=== PATIENT | female | born 1985 | race Caucasian/White ===

== ENCOUNTER 2017-06-14 10:04 | Emergency (ER) | payer MEDICAID ==
[2017-06-14 10:38] VITALS: BP 137/84; PULSE 91; RESP 16; TEMP 98; O2SAT 99
[2017-06-14] MEDS ORDERED: Lidocaine 1% w Epi 1:100,000 Inj ONE (10:42)
[2017-06-14] MEDS ORDERED: Povidone Iodine Topical 10% Sol ONE (10:49)
[2017-06-14] MEDS ORDERED: Lidocaine/Epi 1% 1:100000 20 ML IJ ONE (10:56)
[2017-06-14] MEDS ORDERED: Povidone Iodine 10% OINTMENT TOP ONE (10:59)
--- NOTE | 2017-06-14 11:00 | ED PDOC ---
HPI: Skin/Bite Injury Time Seen by Provider: 06/14/17 10:33 Chief Complaint (Nursing): Lower Extremity Problem/Injury Chief Complaint (Provider): skin abscess History Per: Patient History/Exam Limitations: no limitations Onset/Duration Of Symptoms: Days (x3-4) Current Symptoms Are (Timing): Still Present Additional Complaint(s): 32 years old female with medical history of diabetes, presents to the emergency department for an evaluation of skin abscess on the back of left thigh associated with pain and drainage ongoing for 3-4 days. Patient reported compliance with diabetic medications. PMD: none provided Past Medical History Reviewed: Historical Data, Nursing Documentation, Vital Signs Vital Signs: Last Vital Signs Temp 98.0 F 06/14/17 10:34 Pulse 91 H 06/14/17 10:34 Resp 16 06/14/17 10:34 BP 137/84 06/14/17 10:34 Pulse Ox 99 06/14/17 11:29 - Medical History PMH: Asthma, Diabetes, HTN, Hypercholesterolemia - Surgical History Surgical History: Tonsillectomy - Family History Family History: States: Unknown Family Hx - Social History Current smoker - smoking cessation education provided: No Alcohol: None Drugs: Denies - Immunization History Hx Tetanus Toxoid Vaccination: No Hx Influenza Vaccination: No Hx Pneumococcal Vaccination: No - Home Medications Home Medications: Ambulatory Orders Medication Instructions Recorded GlipiZIDE SR [Glucotrol XL] 5 mg PO DAILY 03/05/14 MetFORMIN [glucoPHAGE] 1,000 mg PO BID 03/05/14 Nitrofurantoin Macrocrystals 100 mg PO BID #13 cap 03/05/14 [Macrobid] Phenazopyridine Hydrochlorid2 1 tab PO TID #15 tab 03/05/14 [Pyridium] Sulfamethoxazole/Trimethoprim 1 tab PO BID #14 tab 11/28/14 [Bactrim DS 800 mg-160 mg] - Allergies Allergies/Adverse Reactions: Allergies Allergy/AdvReac Type Severity Reaction Status Date / Time iodine Allergy RASH Verified 06/14/17 10:27 peach Allergy RASH Verified 06/14/17 10:28 Penicillins Allergy RASH Verified 06/14/17 10:28 shellfish derived Allergy RASH Verified 06/14/17 10:29 Review of Systems ROS Statement: Except As Marked, All Systems Reviewed And Found Negative Musculoskeletal: Positive for: Leg Pain (left thigh abscess with drainage) Physical Exam - Reviewed Nursing Documentation Reviewed: Yes Vital Signs Reviewed: Yes - Physical Exam Appears: Positive for: Well, Non-toxic, No Acute Distress Extremity: Positive for: Normal ROM (left leg), Tenderness (and surrounding erythema to posterior aspect of left thigh), Other (3cm indurated abscess with moderate fluctuance to posterior aspect of left thigh). Negative for: Swelling (or drainage of left thigh abscess) Neurologic/Psych: Positive for: Alert, Oriented - ECG O2 Sat by Pulse Oximetry: 99 (RA) Pulse Ox Interpretation: Normal Medical Decision Making Medical Decision Making: Initial Impression: Skin Abscess Initial Plan: * Lidocaine/Epi 1% 2ml IJ * Betadine 10% oint Time: 1100 --I&D performed. See procedure note. Scribe Attestation: Documented by Marley Pelayo, acting as a scribe for Wilfredo Vizcaino DO . Provider Scribe Attestation: All medical record entries made by the Scribe were at my direction and personally dictated by me. I have reviewed the chart and agree that the record accurately reflects my personal performance of the history, physical exam, medical decision making, and the department course for this patient. I have also personally directed, reviewed, and agree with the discharge instructions and disposition. Disposition - Clinical Impression Clinical Impression: Abscess and cellulitis of gluteal region - Patient ED Disposition Is Patient to be Admitted: No - Disposition Disposition: Routine/Home Disposition Time: 11:20 Condition: STABLE Additional Instructions: Remove packing Friday morning and begin warm daily baths. Return to ER if necessary for worsening symptoms. Forms: [employer] (N[place]ian) Procedures - Time-Out Type of Procedure: incision and drainage Site of Procedure: left posterior thigh Correct Patient (with visual ID + MR# on ID Band): Yes Correct Procedure: Yes Correct Site Marked: Yes X-Ray Marked: No Medication Reconciliation / Bloodwork / Allergies Checked: Yes Physician Name: Carrillo - Incision and Drainage Site: left posterior thigh Blade Size: 11 I & D Procedure: betadine prep, sterile drapes applied Progress: Time: 1100 --Consent obtained from patient verbally. --Patient prepped with Betadine and draped. --Lido with Epi 1% used for local anaesthetic. --Abscess incised with #11 blade. Small amount of pus and blood drained. --Wound packed with 1/4 inch packing. --Patient tolerated procedure well.
== END 2017-06-14 11:38 | disposition home or self-care (01) ==
LOC: H.ER 10:04
DX: L03.317 Cellulitis of buttock (principal); L02.416 Cutaneous abscess of left lower limb